=== PATIENT | male | born 1980 | race Caucasian/White ===

== ENCOUNTER 2020-06-18 18:17 | Inpatient (IN) | payer OTHER ==
[2020-06-18 19:52] VITALS: BMI 24.0
--- NOTE | 2020-06-18 20:26 | HP ---
"CIWA Score Nausea/Vomitin-No Nausea/No Vomiting Muscle Tremors: 1-None Visible, but [place] Anxiety: 4-Mod. Anxious/Guarded Agitation: 4-Moderately Restless Paroxysmal Sweats: 3 Orientation: 0-Oriented Tacttile Disturbances: 0-None Auditory Disturbances: 0-None Visual Disturbances: 0-None Headache: 2-Mild CIWA-Ar Total Score: 14 - Admission Criteria OASAS Guidelines: Admission for Medically Managed Detox: Requires at least one of the followin. CIWA greater than 12 2. Seizures within the past 24 hours 3. Delirium tremens within the past 24 hours 4. Hallucinations within the past 24 hours 5. Acute intervention needed for co occurring medical disorder 6. Acute intervention needed for co occurring psychiatric disorder 7. Severe withdrawal that cannot be handled at a lower level of care (continued vomiting, continued diarrhea, abnormal vital signs) requiring intravenous medication and/or fluids 8. Patient presents the following: CIWA greater than 12 Admission Criteria Met: Admission criteria met Admitting History and Physical - Smoking History Smoking history: Current every day smoker Have you smoked in the past 12 months: Yes Aproximately how many cigarettes per day: 8 Admission ROS [facility] Chief Complaint: c/o withdrawal sx's. seeking detox Allergies/Adverse Reactions: Allergies Allergy/AdvReac Type Severity Reaction Status Date / Time No Known Allergies Allergy Verified 06/18/20 19:36 History of Present Illness: HERE FOR BENZO DETOX. CLIENT IS REFERRED BY HIS PCP TO DETOX OF RX-XANAX/ KLONOPINS. LETTER NOTED. THIS IS HIS FIRST ADMISSION HERE. HE IS ALSO ON METHADONE 140 MG DAILY. REPORTS LDM TODAY AT [facility]. HE REPORTS HIS LAST USE 2 DAYS AGO OF THE BENZO'S. REPORTED HX/O HX OF SEIZURES UNRELATED TO BENZO ABUSE. DENIES BLACK OUTS, IVDU, . REPORTED CLEAN TIME 4 YEARS. LIVE ALONE, UNEMPLOYED- DISABLED, DENIES LEGALS Confidential Drug Utilization Report Search Terms: elieser wilde, 1980Search Date: 06/18/2020 20:16:35 PM The Drug Utilization Report below displays all of the controlled substance prescriptions, if any, that your patient has filled in the last twelve months. The information displayed on this report is compiled from pharmacy submissions to the Department, and accurately reflects the information as submitted by the pharmacies. This report was requested by: Luisa Mendez | Reference #: [id number] You have not added a MARLON number. Keeping your MARLON number(s) up to date on the My MARLON Numbers page will enable the separation of your prescriptions from others in the search results. Others' Prescriptions Patient Name: Elieser Lucas Date: 1980 Address: [address] [place] [id number]: Male Rx Written Rx Dispensed Drug Quantity Days Supply Prescriber Name Payment Method Dispenser 06/06/2020 06/16/2020 clonazepam 2 mg tablet 30 15 Camilo Carbajal MD DO [facility] 05/14/2020 05/19/2020 alprazolam 2 mg tablet 60 30 Evan Shaffer) [facility] 04/20/2020 04/22/2020 alprazolam 2 mg tablet 60 30 Evan Shaffer) [facility] 03/16/2020 03/25/2020 alprazolam 2 mg tablet 60 30 Evan Shaffer) [facility] 02/18/2020 02/26/2020 alprazolam 2 mg tablet 60 30 Evan Shaffer) [facility] 01/29/2020 01/29/2020 alprazolam 2 mg tablet 60 30 Evan Shaffer) [facility] 01/01/2020 01/01/2020 alprazolam 2 mg tablet 60 30 Evan Shaffer) [facility] 12/04/2019 12/04/2019 alprazolam 2 mg tablet 60 30 Evan Shaffer) [facility] 11/06/2019 11/06/2019 alprazolam 2 mg tablet 60 30 Evan Shaffer) [facility] 10/09/2019 10/09/2019 alprazolam 2 mg tablet 60 30 Evan Shaffer) [facility] 09/11/2019 09/11/2019 alprazolam 2 mg tablet 60 30 Evan Shaffer) [facility] 08/14/2019 08/14/2019 alprazolam 2 mg tablet 60 30 Evan Shaffer) [facility] 07/17/2019 07/17/2019 alprazolam 2 mg tablet 60 30 Evan hSaffer) [facility] Exam Limitations: No Limitations - Ebola screening Have you traveled outside of the country in the last 21 days: No Have you had contact with anyone from an Ebola affected area: No Have you been sick,other than usual withdrawal symptoms: No Do you have a fever: No - Review of Systems Constitutional: Changes in sleep EENT: reports: Dental Problems (MISSING TEETH) Respiratory: reports: No Symptoms reported Cardiac: reports: No Symptoms Reported GI: reports: No Symptoms Reported : reports: No Symptoms Reported Musculoskeletal: reports: No Symptoms Reported Integumentary: reports: No Symptoms Reported Neuro: reports: Seizure Endocrine: reports: No Symptoms Reported Hematology: reports: No Symptoms Reported Psychiatric: reports: Orientated x3, Anxious, Depressed (DENIES SI/HI) Other Systems: Reviewed and Negative Patient History - Patient Medical History Hx Anemia: No Hx Asthma: Yes Hx Chronic Obstructive Pulmonary Disease (COPD): No Hx Cancer: No Hx Cardiac Disorders: No Hx Congestive Heart Failure: No Hx Hypertension: Yes (RX CLONIDINE) Hx Hypercholesterolemia: No Hx Pacemaker: No HX Cerebrovascular Accident: No Hx Seizures: Yes (ON KEPPRA) Hx Dementia: No Hx Diabetes: No Hx Gastrointestinal Disorders: No Hx Liver Disease: No Hx Genitourinary Disorders: No Hx Sexually Transmitted Disorders: No Hx Renal Disease (ESRD): No Hx Thyroid Disease: No Hx Human Immunodeficiency Virus (HIV): No Hx Hepatitis C: No Hx Depression: Yes Hx Suicide Attempt: No Hx Schizophrenia: No Other Medical History: ANXIETY - Patient Surgical History Past Surgical History: No Hx Neurologic Surgery: No Hx Cataract Extraction: No Hx Cardiac Surgery: No Hx Lung Surgery: No Hx Breast Surgery: No Hx Breast Biopsy: No Hx Abdominal Surgery: No Hx Appendectomy: No Hx Cholecystectomy: No Hx Genitourinary Surgery: No Hx Section: No Hx Orthopedic Surgery: No Anesthesia Reaction: No - PPD History Previous Implant?: Yes Documented Results: Negative w/o proof Implanted On Prior [facility] Admission?: No PPD to be Administered?: Yes - Smoking Cessation Smoking history: Current every day smoker Have you smoked in the past 12 months: Yes Aproximately how many cigarettes per day: 8 Hx Chewing Tobacco Use: No Initiated information on smoking cessation: Yes 'Breaking Loose' booklet given: 06/18/20 - Substance & Tx. History Hx Alcohol Use: Yes Hx Substance Use: Yes Substance Use Type: Prescribed (METHADONE/ KLONOPIN/XANAX) Hx Substance Use Treatment: Yes ([facility] ) - Substances abused Alprazolam (Xanax) Substance route: Oral Frequency: Daily Amount used: 10mg Age of first use: 19 Date of last use: 06/16/20 Marijuana/Hashish Substance route: Smoking Frequency: Daily Amount used: 3 joints Age of first use: 18 Date of last use: 06/18/20 Admission Physical Exam S - Vital Signs Vital Signs: Vital Signs - 24 hr 06/18/20 19:42 Temperature 97.4 F L Pulse Rate 54 L Respiratory 18 Rate Blood Pressure 91/64 - Physical General Appearance: Yes: Tremorous (FELT), Anxious HEENTM: Yes: EOMI, Normocephalic, Normal Voice, DAVID, Pharynx Normal, Other (POOR DENTITION. TOP DENTURES/ MISSING BOTTOM TEETH) Respiratory: Yes: Chest Non-Tender, Lungs Clear, Normal Breath Sounds, No Respiratory Distress, No Accessory Muscle Use Neck: Yes: No masses,lesions,Nodules, Supple, Trachea in good position Breast: Yes: Breast Exam Deferred Cardiology: Yes: Regular Rhythm, S1, S2, Bradycardia Abdominal: Yes: Normal Bowel Sounds, Non Tender, Soft Genitourinary: Yes: Within Normal Limits Back: Yes: Normal Inspection Musculoskeletal: Yes: full range of Motion, Gait Steady Extremities: Yes: Normal Capillary Refill, Normal Range of Motion, Non-Tender, Tremors (FELT) Neurological: Yes: Fully Oriented, Alert, Motor Strength 5/5, Depressed Affect Integumentary: Yes: Dry, Warm Lymphatic: Yes: Within Normal Limits - Diagnostic (1) Sedative, hypnotic or anxiolytic dependence with withdrawal, uncomplicated Current Visit: Yes Status: Acute (2) Methadone maintenance therapy patient Current Visit: Yes Status: Chronic (3) Cannabis dependence, uncomplicated Current Visit: Yes Status: Acute (4) Asthma Current Visit: Yes Status: Chronic Qualifiers: Asthma severity: mild Asthma persistence: intermittent Asthma complication type: uncomplicated Qualified Code(s): J45.20 - Mild intermittent asthma, uncomplicated (5) HTN (hypertension) Current Visit: Yes Status: Chronic Qualifiers: Hypertension type: essential hypertension Qualified Code(s): I10 - Essential (primary) hypertension (6) Depressed affect Current Visit: Yes Status: Acute (7) Seizure disorder Current Visit: Yes Status: Chronic (8) At risk for seizures Current Visit: Yes Status: Acute (9) Substance-induced sleep disorder Current Visit: Yes Status: Suspected Cleared for Admission S - Detox or Rehab [facility] Level of Care: Medically Managed Detox Regimen/Protocol: Valium Claeared for Rehab Admission: No Breathalyzer - Breathalyzer Breathalyzer: 0 Urine Drug Screen - Test Device Lot number: [id number] Expiration date: 07/26/21 - Control Is test valid?: Yes - Results Drug screen NEGATIVE: No Urine drug screen results: THC-Marijuana, MTD-Methadone, BZO-Benzodiazepines Inpatient Rehab Admission - Rehab Decision to Admit Inpatient rehab admission?: No"
[2020-06-18] MEDS ORDERED: NICOTINE POLACRILEX 2 MG GUM BUC PRN (20:37)
[2020-06-18] MEDS ORDERED: MAGNESIUM HYDROX 2400MG/30ML ORAL SUSPENSION 30 ML CUP PO PRN (20:37)
[2020-06-18] MEDS ORDERED: hydrOXYzine PAMOATE 25 MG CAPSULE (FP) PO PRN (20:37)
[2020-06-18] MEDS ORDERED: guaiFENesin 200 MG/10 ML 10 ML UNIT-DOSE CUPS PO PRN (20:37)
[2020-06-18] MEDS ORDERED: BISMUTH SUBSALICYLATE 524 MG/30 ML UD PO PRN (20:37)
[2020-06-18] MEDS ORDERED: MENTHOL/PHENOL 1 EACH UD MM PRN (20:37)
[2020-06-18] MEDS ORDERED: ONDANSETRON *ODT* 4 MG TABLET SL ONE (20:37)
[2020-06-18] MEDS ORDERED: DICYCLOMINE HCL 10 MG CAPSULE PO PRN (20:37)
[2020-06-18] MEDS ORDERED: IBUPROFEN 400 MG TABLET (FP) PO PRN (20:37)
[2020-06-18] MEDS ORDERED: P-EPHED 60MG/TRIPROLIDI 2.5MG TABLET PO PRN (20:37)
[2020-06-18] MEDS ORDERED: MAG HYDROX/AL HYDROX/SIMETH 30 ML UNIT-DOSE CUP PO PRN (20:37)
[2020-06-18] MEDS ORDERED: ACETAMINOPHEN 325 MG TABLET (FP) PO PRN ×2 (20:37)
[2020-06-18] MEDS ORDERED: MAGNESIUM CITRATE 300 ML BOTTLE PO PRN (20:37)
[2020-06-18] MEDS ORDERED: METHOCARBAMOL 500 MG TABLET PO PRN (20:37)
[2020-06-18] MEDS: THIAMINE HCL 100 MG TABLET (FP) PO SCH (22:35)
[2020-06-18] MEDS: levETIRAcetam 500 MG TABLET (FP) PO SCH (22:35)
[2020-06-18] MEDS: MELATONIN 5 MG TABLETS PO SCH (22:36)
[2020-06-18] MEDS: diazePAM 5 MG TABLET PO SCH (22:36)
--- NOTE | 2020-06-18 22:44 | PN ---
S Progress Note Note: ekg with qt 568/qtc 468 bradycardia 41 hr sinus arrhythmia. client is a/o x3 denies c.p., sob, palpitations, dizziness. currently on methadone 140 mg daily and rx xanax now klonopins. Will cont to monitor closely clinically. p- daily ekg's x3. consider decreasing methadone dose. clonodine held Vital Signs Temperature 96.9 F L 06/18/20 22:07 Pulse Rate 48 L 06/18/20 22:07 Respiratory Rate 18 06/18/20 22:07 Blood Pressure 100/63 06/18/20 22:07 O2 Sat by Pulse Oximetry (%) 98 06/18/20 22:07
[2020-06-19] MEDS: diazePAM 5 MG TABLET PO SCH ×3 (05:54→21:43)
[2020-06-19 09:39] LABS: HEMATOCRIT 35.9 % (35.4-49); HEMOGLOBIN 12.2 GM/dL (11.7-16.9); MCH 32.2 pg (25.7-33.7); MCHC 34.1 g/dl (32.0-35.9); MEAN CELL VOLUME 94.6 fl (80-96); MEAN PLT VOLUME 10.1 fl (7.5-11.1); PLATELET COUNT 211 K/MM3 (134-434); RDW 13.5 % (11.9-15.9); WHITE BLOOD COUNT 9.5 K/mm3 (4.0-10.0)
[2020-06-19 10:09] LABS: ALBUMIN 3.5 g/dl (3.4-5.0); BILIRUBIN,TOTAL 0.2 mg/dL (0.2-1); BLOOD UREA NITROGEN 26.4 mg/dL (7-18); CALCIUM 8.7 mg/dL (8.5-10.1); CREATININE 1.4 mg/dL (0.55-1.3); TOT PROT 7.2 g/dl (6.4-8.2)
[2020-06-19] MEDS ORDERED: METHADONE HCL 10 MG TABLET PO SCH (10:45)
[2020-06-19] MEDS ORDERED: METHADONE HCL 10 MG TABLET ONE (10:58)
[2020-06-19] MEDS ORDERED: METHADONE HCL 40 MG DISPERSABLE TABLET ONE (11:00)
[2020-06-19] MEDS: PRENATAL VITAMINS W/ FOLIC ACID TABLET (FP) PO SCH (11:07)
[2020-06-19] MEDS: levETIRAcetam 500 MG TABLET (FP) PO SCH ×2 (11:07→21:43)
[2020-06-19] MEDS: METHADONE PO SCH (11:08)
[2020-06-19] MEDS: NICOTINE 14 MG/24 HOURS TOPICAL PATCH TD SCH (11:08)
--- NOTE | 2020-06-19 14:57 | CONSULT ---
[facility] Psychiatric Consult - Data Date of interview: 06/19/20 Admission source: [facility] Identifying data: First visit to [facility] and admission to [address] [place] [address] for this 40 y/o male, referred by his primary care physician, for detoxification treatment (benzodiazepines). SIVA issues : xanax, nicotine, cannabis. Patient is , a father of six, domiciled, unemployed and supported on SSI benefits. Substance Abuse History: Discussed with the patient. SIVA profile as follows : Smoking history: Current every day smoker. Have you smoked in the past 12 months: Yes. Aproximately how many cigarettes per day: 8. Hx Chewing Tobacco Use: No. Initiated information on smoking cessation: Yes. 'Breaking Loose' booklet given: 06/18/20. - Substance & Tx. History. Hx Alcohol Use: Yes. Hx Substance Use: Yes. Substance Use Type: Prescribed (METHADONE/ KLONOPIN/XANAX). Hx Substance Use Treatment: Yes ([facility] ). - Substances abused. Alprazolam (Xanax). Substance route: Oral. Frequency: Daily. Amount used: 10mg. Age of first use: 19. Date of last use: 06/16/20. Marijuana/Hashish. Substance route: Smoking. Frequency: Daily. Amount used: 3 joints. Age of first use: 18. Date of last use: 06/18/20 Medical History: Medical history is remarkable for hypertension, bronchial asthma and seizure disorder (on levetiracetam). Psychiatric History: Patient denies history of psychiatric hospitalizations. No history of psychiatric OPD care. Mr Morris is currently on methadone maintenance at [facility] ([facility] Daily dose : 140 mg of methadone. He denies having a psychiatric diagnosis. No history of suicide attempts. Physical/Sexual Abuse/Trauma History: Patient denies. Additional Comment: Urine drug screen results: THC-Marijuana, MTD-Methadone, BZO-Benzodiazepines. Noted. Mental Status Exam - Mental Status Exam Alert and Oriented to: Time, Place, Person Cognitive Function: Good Patient Appearance: Well Groomed (tattoos on neck, dorsum of hands) Mood: Hopeful, Euthymic Affect: Appropriate, Normal Range Patient Behavior: Appropriate, Cooperative Speech Pattern: Clear, Appropriate Voice Loudness: Normal Thought Process: Intact, Goal Oriented Thought Disorder: Not Present Hallucinations: Denies Suicidal Ideation: Denies Homicidal Ideation: Denies Insight/Judgement: Poor Sleep: Well Appetite: Good Gait/Station: Normal Psychiatric Findings - Problem List ([place] 1, 2,3) (1) Sedative, hypnotic or anxiolytic dependence with withdrawal, uncomplicated Current Visit: Yes Status: Acute (2) Cannabis dependence, uncomplicated Current Visit: Yes Status: Acute (3) Opioid dependence on agonist therapy Current Visit: Yes Status: Chronic (4) Nicotine dependence Current Visit: Yes Status: Chronic - Initial Treatment Plan Initial Treatment Plan: Psychoeducation. Sleep hygiene. Detoxification. Observation.
--- NOTE | 2020-06-19 16:21 | PN ---
[facility] CIWA - CIWA Score Nausea/Vomitin-No Nausea/No Vomiting Muscle Tremors: 2 Anxiety: 4-Mod. Anxious/Guarded Agitation: 2 Paroxysmal Sweats: No Perspiration Orientation: 0-Oriented Tacttile Disturbances: 2-Mild Itch/Numbness/Burn Auditory Disturbances: 1-Very Mild Visual Disturbances: 0-None Headache: 0-None Present CIWA-Ar Total Score: 11 S Progress Note (SOAP) Subjective: Anxious, Stomach Cramping, Body Aches. Objective: Patient A & O X 3, Observed Ambulating on Detox Unit Unassisted. In No Acute Distress. 06/19/20 16:17 Vital Signs Temperature 97.3 F L 06/19/20 12:35 Pulse Rate 60 06/19/20 12:35 Respiratory Rate 18 06/19/20 12:35 Blood Pressure 114/73 06/19/20 12:35 O2 Sat by Pulse Oximetry (%) 100 06/19/20 12:35 Laboratory Tests 06/19/20 06/19/20 06/19/20 07:10 07:10 07:10 WBC 9.5 RBC 3.80 L Hgb 12.2 Hct 35.9 MCV 94.6 MCH 32.2 MCHC 34.1 RDW 13.5 Plt Count 211 MPV 10.1 Sodium 141 Potassium 4.0 Chloride 106 Carbon Dioxide 28 Anion Gap 7 L BUN 26.4 H Creatinine 1.4 H Est GFR (CKD-EPI)AfAm 71.32 Est GFR (CKD-EPI)NonAf 61.53 Random Glucose 101 Calcium 8.7 Total Bilirubin 0.2 AST 23 ALT 32 Alkaline Phosphatase 106 Total Protein 7.2 Albumin 3.5 Syphilis Serology Non-reactive Lab Results noted. Assessment: 06/19/20 16:18 WITHDRAWAL SYMPTOMS. Plan: Continue Detox. Increase Daily Oral Water Intake. Results of Repeat ECG noted. QTc: 478. Patient currently prescribed MMTP dose of 140 mg daily. Patient advised to follow-up with [facility] and with medical Provider at [facility] after discharge from Detox for further evaluation of this matter. Patient verbalized understanding of recommendation. Copy of ECG discussed given to patient to take with him at time of discharge from Detox Unit.
[2020-06-19] MEDS: MELATONIN 5 MG TABLETS PO SCH (21:43)
[2020-06-19] MEDS: THIAMINE HCL 100 MG TABLET (FP) PO SCH (21:44)
[2020-06-20] MEDS ORDERED: METHADONE HCL 10 MG TABLET ONE (04:21)
[2020-06-20] MEDS ORDERED: METHADONE HCL 40 MG DISPERSABLE TABLET ONE (04:22)
[2020-06-20] MEDS: METHADONE PO SCH (06:14)
[2020-06-20] MEDS: diazePAM 5 MG TABLET PO SCH ×2 (06:14→17:35)
[2020-06-20] MEDS: levETIRAcetam 500 MG TABLET (FP) PO SCH ×2 (09:49→21:05)
[2020-06-20] MEDS: diazePAM 5 MG TABLET PO PRN ×2 (09:49→21:06)
[2020-06-20] MEDS: NICOTINE 14 MG/24 HOURS TOPICAL PATCH TD SCH (09:49)
[2020-06-20] MEDS: PRENATAL VITAMINS W/ FOLIC ACID TABLET (FP) PO SCH (09:49)
--- NOTE | 2020-06-20 13:28 | PN ---
S CIWA - CIWA Score Nausea/Vomitin-No Nausea/No Vomiting Muscle Tremors: 1-None Visible, but [place] Anxiety: 2 Agitation: 1-Slight > Activity Paroxysmal Sweats: No Perspiration Orientation: 0-Oriented Tacttile Disturbances: 0-None Auditory Disturbances: 0-None Visual Disturbances: 2-Mild Sensitivity Headache: 0-None Present CIWA-Ar Total Score: 6 [facility] Progress Note (SOAP) Subjective: 40 years old male admitted on 06/18/20 for benzo withdrawal sx management treating with valium detox regiment received methadone 140 mg po today feeling better prefers to returning to methadone program for behavior and psychosocial therapies mr wilde wants to return to his "old program" three times a week for supportive care Objective: 06/20/20 13:27 Vital Signs - 24 hr 06/20/20 06/20/20 06/20/20 07:00 08:35 12:50 Temperature 98.2 F 97.2 F L 97.2 F L Pulse Rate 63 64 64 Respiratory 18 18 18 Rate Blood Pressure 122/78 138/87 138/87 O2 Sat by Pulse 97 98 Oximetry (%) Laboratory Tests 06/18/20 06/19/20 06/19/20 21:40 07:10 07:10 WBC 9.5 RBC 3.80 L Hgb 12.2 Hct 35.9 MCV 94.6 MCH 32.2 MCHC 34.1 RDW 13.5 Plt Count 211 MPV 10.1 Sodium Potassium Chloride Carbon Dioxide Anion Gap BUN Creatinine Est GFR (CKD-EPI)AfAm Est GFR (CKD-EPI)NonAf Random Glucose Calcium Total Bilirubin AST ALT Alkaline Phosphatase Total Protein Albumin Syphilis Serology Non-reactive COVID-19 ([facility]) Not detected 06/19/20 07:10 WBC RBC Hgb Hct MCV MCH MCHC RDW Plt Count MPV Sodium 141 Potassium 4.0 Chloride 106 Carbon Dioxide 28 Anion Gap 7 L BUN 26.4 H Creatinine 1.4 H Est GFR (CKD-EPI)AfAm 71.32 Est GFR (CKD-EPI)NonAf 61.53 Random Glucose 101 Calcium 8.7 Total Bilirubin 0.2 AST 23 ALT 32 Alkaline Phosphatase 106 Total Protein 7.2 Albumin 3.5 Syphilis Serology COVID-19 ([facility]) bun elevation related to volume deficit upon admission good skin turgor moist oral membrane Assessment: 06/20/20 13:28 benzo withdrawal Plan: valium regiment
--- NOTE | 2020-06-20 17:15 | EKG ---
Test Reason : Blood Pressure : / mmHG Vent. Rate : 064 BPM Atrial Rate : 064 BPM P-R Int : 156 ms QRS Dur : 098 ms QT Int : 464 ms P-R-T Axes : 070 048 048 degrees QTc Int : 478 ms NORMAL SINUS RHYTHM POSSIBLE LEFT ATRIAL ENLARGEMENT BORDERLINE ECG NO PREVIOUS ECGS AVAILABLE Confirmed by MD Abdi, Kaushal ([id number]) on 06/20/2020 5:15:24 PM Referred By: Kenroy Emery Confirmed By:Kaushal Patton MD
--- NOTE | 2020-06-20 17:15 | EKG ---
Test Reason : Blood Pressure : / mmHG Vent. Rate : 041 BPM Atrial Rate : 041 BPM P-R Int : 178 ms QRS Dur : 098 ms QT Int : 568 ms P-R-T Axes : 051 047 048 degrees QTc Int : 468 ms MARKED SINUS BRADYCARDIA WITH SINUS ARRHYTHMIA ABNORMAL ECG NO PREVIOUS ECGS AVAILABLE Confirmed by MD Abdi, Kaushal ([id number]) on 06/20/2020 5:14:58 PM Referred By: Kenroy Emery Confirmed By:Kaushal Patton MD
--- NOTE | 2020-06-20 17:16 | EKG ---
Test Reason : Blood Pressure : / mmHG Vent. Rate : 061 BPM Atrial Rate : 061 BPM P-R Int : 150 ms QRS Dur : 100 ms QT Int : 472 ms P-R-T Axes : 061 037 033 degrees QTc Int : 475 ms NORMAL SINUS RHYTHM NORMAL ECG WHEN COMPARED WITH ECG OF 19-JUN-2020 09:20, NO SIGNIFICANT CHANGE WAS FOUND Confirmed by MD Abdi, Kaushal ([id number]) on 06/20/2020 5:15:46 PM Referred By: Kenroy Emery Confirmed By:Kaushal Patton MD
[2020-06-20 17:59] LABS: PH,URINE 5.5 (5.0-8.0); URINE APPEARANCE CLEAR; URINE BILIRUBIN NEGATIVE (NEGATIVE); URINE COLOR YELLOW; URINE GLUCOSE (UA) NEGATIVE (NEGATIVE); URINE KETONE NEGATIVE (NEGATIVE); URINE LEUK ESTERASE NEGATIVE (NEGATIVE); URINE NITRITE NEGATIVE (NEGATIVE); URINE PROTEIN NEGATIVE (NEGATIVE); URINE UROBILINOGEN 0.2 mg/dL (0.2-1.0)
[2020-06-20] MEDS: THIAMINE HCL 100 MG TABLET (FP) PO SCH (21:05)
[2020-06-20] MEDS: MELATONIN 5 MG TABLETS PO SCH (21:06)
[2020-06-21] MEDS ORDERED: METHADONE HCL 40 MG DISPERSABLE TABLET ONE (04:10)
[2020-06-21] MEDS ORDERED: METHADONE HCL 10 MG TABLET ONE (04:10)
[2020-06-21] MEDS ORDERED: diazePAM 5 MG TABLET PO ONE (06:00)
[2020-06-21] MEDS: METHADONE PO SCH (06:07)
[2020-06-21 06:33] VITALS: BP 117/74; PULSE 62; TEMP 97.3
--- NOTE | 2020-06-21 10:13 | DS ---
[facility] Detox Discharge Summary Admission Date: 06/18/20 Discharge Date: 06/21/20 - History Present History: Sedative Dependence Additional Comments: 40 years old male admitted on 06/18/20 for benzo withdrawal sx management treated with valium detox regiment seen by psychiatrist no medical intervention mr wilde has completed the valium regiment and is tolerated well alert oriented x 3 speech clearly coherently ambulating with steady gaits cardiac s1s2 regular rate rhythm Vital Signs - 24 hr 06/20/20 06/20/20 06/20/20 12:50 16:33 20:40 Temperature 97.2 F L 97.3 F L 97.1 F L Pulse Rate 64 69 61 Respiratory 18 18 18 Rate Blood Pressure 138/87 128/87 140/86 O2 Sat by Pulse 98 99 Oximetry (%) 06/21/20 05:51 Temperature 97.3 F L Pulse Rate 62 Respiratory 18 Rate Blood Pressure 117/74 O2 Sat by Pulse 99 Oximetry (%) respiratory clear lung sounds bilaterally on auscultation extremities full range of motion Pertinent Past History: time for discharge 34 minutes - Physical Exam Results Vital Signs: Vital Signs Temperature 97.3 F L 06/21/20 05:51 Pulse Rate 62 06/21/20 05:51 Respiratory Rate 18 06/21/20 05:51 Blood Pressure 117/74 06/21/20 05:51 O2 Sat by Pulse Oximetry (%) 99 06/21/20 05:51 Pertinent Admission Physical Exam Findings: benzo withdrawal Laboratory Tests 06/18/20 06/19/20 06/19/20 21:40 07:10 07:10 WBC 9.5 RBC 3.80 L Hgb 12.2 Hct 35.9 MCV 94.6 MCH 32.2 MCHC 34.1 RDW 13.5 Plt Count 211 MPV 10.1 Sodium Potassium Chloride Carbon Dioxide Anion Gap BUN Creatinine Est GFR (CKD-EPI)AfAm Est GFR (CKD-EPI)NonAf Random Glucose Calcium Total Bilirubin AST ALT Alkaline Phosphatase Total Protein Albumin Urine Color Urine Appearance Urine pH Ur Specific [place] Urine Protein Urine Glucose (UA) Urine Ketones Urine Blood Urine Nitrite Urine Bilirubin Urine Urobilinogen Ur Leukocyte Esterase Syphilis Serology Non-reactive COVID-19 ([facility]) Not detected 06/19/20 06/20/20 07:10 08:10 WBC RBC Hgb Hct MCV MCH MCHC RDW Plt Count MPV Sodium 141 Potassium 4.0 Chloride 106 Carbon Dioxide 28 Anion Gap 7 L BUN 26.4 H Creatinine 1.4 H Est GFR (CKD-EPI)AfAm 71.32 Est GFR (CKD-EPI)NonAf 61.53 Random Glucose 101 Calcium 8.7 Total Bilirubin 0.2 AST 23 ALT 32 Alkaline Phosphatase 106 Total Protein 7.2 Albumin 3.5 Urine Color Yellow Urine Appearance Clear Urine pH 5.5 Ur Specific [place] 1.014 Urine Protein Negative Urine Glucose (UA) Negative Urine Ketones Negative Urine Blood Negative Urine Nitrite Negative Urine Bilirubin Negative Urine Urobilinogen 0.2 Ur Leukocyte Esterase Negative Syphilis Serology COVID-19 ([facility]) bun elevation with within acceptable range of gfr mr wilde will follow up with methadone program for repeat bun - Treatment Hospital Course: Detox Protocol Followed, Detoxed Safely, Responded well, Discharged Condition Good, Rehab Referral Accepted Patient has Accepted a Rehab Referral to: return to methadone maintenance program for behavior and psychosocial thera - Medication Discharge Medications: Ambulatory Orders Clonidine HCl [Catapres] 0.3 mg PO BID 06/18/20 Methadone [Dolophine -] 140 mg PO DAILY 06/18/20 levETIRAcetam [Keppra -] 1,000 mg PO BID 06/18/20 - Diagnosis (1) Substance induced mood disorder Status: Suspected (2) Sedative, hypnotic or anxiolytic dependence with withdrawal, uncomplicated Status: Acute (3) Asthma Status: Chronic Qualifiers: Asthma severity: mild Asthma persistence: intermittent Asthma complication type: with status asthmaticus Qualified Code(s): J45.22 - Mild intermittent asthma with status asthmaticus (4) HTN (hypertension) Status: Chronic Qualifiers: Hypertension type: essential hypertension Qualified Code(s): I10 - Essential (primary) hypertension (5) Methadone maintenance therapy patient Status: Chronic (6) Nicotine dependence Status: Acute Qualifiers: Nicotine product type: cigarettes Substance use status: in withdrawal Qualified Code(s): F17.213 - Nicotine dependence, cigarettes, with withdrawal (7) Seizure disorder Status: Chronic - AMA Did Patient Leave Against Medical Advice: No CIWA Score - CIWA Score Nausea/Vomitin-No Nausea/No Vomiting Muscle Tremors: 1-None Visible, but [place] Anxiety: 1-Mildly Anxious Agitation: 0-Normal Activity Paroxysmal Sweats: No Perspiration Orientation: 0-Oriented Tacttile Disturbances: 0-None Auditory Disturbances: 0-None Visual Disturbances: 1-Very Mild Sensitivity Headache: 0-None Present CIWA-Ar Total Score: 3
== END 2020-06-21 09:05 | disposition home or self-care (01) | DRG 773 ==
LOC: YASAS 18:17 → Y3N 20:54
PROVIDERS: ADMIT Allergy & Immunology; ATTEND Allergy & Immunology
PROC: HZ2ZZZZ Detoxification Services for Substance Abuse Treatment (ICD-10-PCS; principal; 2020-06-18)
DX: F13.230 Sedative, hypnotic or anxiolytic dependence with withdrawal, uncomplicated (principal); F11.20 Opioid dependence, uncomplicated; F12.20 Cannabis dependence, uncomplicated; F17.210 Nicotine dependence, cigarettes, uncomplicated; F32.9 Major depressive disorder, single episode, unspecified; F41.9 Anxiety disorder, unspecified; I10 Essential (primary) hypertension; J45.20 Mild intermittent asthma, uncomplicated; G40.909 Epilepsy, unspecified, not intractable, without status epilepticus; R00.1 Bradycardia, unspecified; Z56.0 Unemployment, unspecified
CPT/HCPCS: 36415; 80053; 81003; 85027; 86780; 93005; 93010; U0003